=== PATIENT | female | born 1985 | race Caucasian/White ===

== ENCOUNTER 2016-11-17 16:35 | Emergency (ER) | payer MEDICAID ==
[2016-11-17] MEDS ORDERED: predniSONE 20 MG TABLET PO STA (17:46)
[2016-11-17] MEDS ORDERED: predniSONE 20 MG TABLET ONE (17:50)
== END 2016-11-17 17:56 | disposition home or self-care (01) ==
DX: J45.901 Unspecified asthma with (acute) exacerbation (principal); F17.200 Nicotine dependence, unspecified, uncomplicated
CPT/HCPCS: 99283; J7512

== ENCOUNTER 2018-07-08 03:25 | Outpatient (CLI) | payer MEDICAID | END 2018-07-08 03:26 | disposition EMS.NT | LOC: EMS 03:25 | PROVIDERS: ATTEND Surgery | DX: F41.9 Anxiety disorder, unspecified (principal) ==

== ENCOUNTER 2021-01-26 20:14 | Emergency (ER) | payer MEDICAID ==
[2021-01-26] MEDS ORDERED: AMOX/CLAV 875 MG/125 MG TABLET PO STA (21:39)
[2021-01-26] MEDS ORDERED: IBUPROFEN 600 MG TABLET PO STA (21:41)
--- NOTE | 2021-01-26 21:45 | ED Physician Documentation ---
History of Present Illness - Stated complaint Stated Complaint: LT EAR PX - Chief complaint Chief Complaint: Heent - History obtained from History obtained from: Patient - Additonal information Additional information: 35-year-old woman presents with left ear pain over the past week without associated fever. It has progressively worsened so that the external ear itself is swollen, red, and warm, and she is experiencing significant drainage from the ear.Denies mastoid pain, sinus pain. Does endorse muffled hearing. Review of Systems Ears: reports: Loss of hearing, Ear pain, Drainage/discharge PD PAST MEDICAL HISTORY - Past Medical History Past Medical History: Yes Cardiovascular: None Respiratory: Asthma HEENT: Other Musculoskeletal: Chronic back pain Other Past Medical History: frequent ear infx - Past Surgical History Past Surgical History: Yes /[employer]: Tubal ligation HEENT: Tonsil/Adenoidectomy - Present Medications Home Medications: Ambulatory Orders Medication Instructions Recorded Confirmed Amox/Clav 875/125 [Augmentin 1 tablet PO Q12H 7 Days #14 tablet 01/26/21 875/125 Tab] - Allergies Allergies/Adverse Reactions: Allergies Allergy/AdvReac Type Severity Reaction Status Date / Time hydrocodone bitartrate * Allergy swelling Verified 11/17/16 16:56 [From Vicodin] latex Allergy Hives Verified 11/17/16 16:56 Sulfa (Sulfonamide Allergy Unknown Verified 11/17/16 16:56 Antibiotics) - Social History Does the pt smoke?: Yes Smoking Status: Current every day smoker Does the pt drink ETOH?: No Does the pt have substance abuse?: No - Immunizations Immunizations are current?: No Immunizations: TDAP >10years/unknown - POLST Patient has POLST: No PD ED PE NORMAL - Vitals Vital signs reviewed: Yes - General General: Alert and oriented X 3, No acute distress, Well developed/nourished - HEENT HEENT: Atraumatic, PERRL, EOMI, Other (L ear with purulent drainage and perichondritis. TM not visible 2/2 swelling. ext aud canal with erythema/purulence) Results - Vitals Vitals: Oxygen O2 Source Room air PD MEDICAL DECISION MAKING - ED course ED course: 35-year-old woman presents with external otitis and perichondritis. Will treat with antibiotics. Return precautions given. Departure - Departure Disposition: 01 Home, Self Care Clinical Impression: Perichondritis, Otitis externa Condition: Good Instructions: ED Otitis Externa Prescriptions: Amox/Clav 875/125 [Augmentin 875/125 Tab] 1 tablet PO Q12H 7 Days #14 tablet Comments: You are seen in the emergency department for an external ear infection and infection of the pinna (the outer part of the ear). Return to the emergency department or urgent care if you do not have improvement in 48 hours, if you have any new or worsening symptoms or other concerns. Follow-up with your primary doctor. Discharge Date/Time: 01/26/21 22:26
[2021-01-26] MEDS ORDERED: CIPROFLOX/DEXAMETH OTIC DROPS LEFTEAR SCH (22:00)
[2021-01-26 22:27] VITALS: BP 122/68
== END 2021-01-26 22:26 | disposition home or self-care (01) ==
LOC: ED 20:14
DX: H60.92 Unspecified otitis externa, left ear (principal); H61.002 Unspecified perichondritis of left external ear; F17.200 Nicotine dependence, unspecified, uncomplicated
CPT/HCPCS: 99282; 99283; A9270